=== PATIENT | female | born 1965 | race Caucasian/White ===

== ENCOUNTER 2017-03-20 10:26 | Day surgery (SDC) | payer OTHER ==
[~2017-03-20] VITALS: Ht 152.4 cm; Wt 66.1 kg
[~2017-03-20 10:26] MED LIST: IBUP-1542 PO; NO MEDS; TRAM50TA2 PO
[2017-03-20 12:50] VITALS: Ht 152.4 cm; Wt 66.1 kg
[2017-03-20 13:30] VITALS: BP 192/88; PULSE 66; RESP 18
[2017-03-20] MEDS ORDERED: FENTAnyl 50 MCG/ML VIAL ONE (14:26)
[2017-03-20] MEDS ORDERED: MIDAZOLAM 1 MG/ML 2 ML INJ ONE ×2 (14:26)
[2017-03-20 14:35] VITALS: BP 155/69; PULSE 64; RESP 14
--- NOTE | 2017-03-24 12:42 | GILP ---
Jana LUNDY PROCEDURE DATE OF PROCEDURE: 03/20/2017 SURGEON: Jasmyne Toscano MD. PROCEDURE PERFORMED: 1. Esophagogastroduodenoscopy and biopsy. 2. Colonoscopy and biopsy. PREOPERATIVE DIAGNOSES: 1. Abdominal pain. 2. Screening colonoscopy. POSTOPERATIVE DIAGNOSES: 1. Hiatal hernia. 2. Gastroesophageal reflux disease. 3. Gastritis with erosions. 4. Gastric mucosa biopsies were taken for Helicobacter pylori. 5. Colonoscopy all the way to cecum. 6. Biopsies of the cecal polyp was done. 7. Internal hemorrhoids. INDICATION: The patient is a 51-year-old female patient who had upper abdominal pain, not responding to therapy. The patient also needed a screening colonoscopy. The procedure and possible complications were well-explained to the patient, the patient understood and consented to the procedure. DESCRIPTION OF PROCEDURE: Under the influence of fentanyl and Versed the gastro scope was carefully introduced into the esophagus. Under the direct vision it was advanced to the stomach into the pylorus, into the duodenal bulb, and descending duodenum. Findings of the esophagus: The patient had hiatal hernia and gastroesophageal reflux disease. Stomach: The patient had gastritis and erosions. Gastric mucosal biopsies were taken for H pylori test. The duodenum was normal. The colonoscope was carefully introduced into the rectum, and under direct vision it was advanced all the way to the cecum. Findings: The patient had a polyp in the cecum, and biopsies were taken for histopathology. The patient was noted to have internal hemorrhoids. The patient tolerated the procedures very well. There was no complications from the procedures. At the end of the procedure she was awake with stable vital signs. She was discharged home to the care of her family. IMPRESSION: 1. Hiatal hernia. 2. Gastroesophageal reflux disease. 3. Gastritis with erosions. 4. Gastric mucosal biopsies were taken for Helicobacter pylori testing. 5. Colonoscopy all the way to the cecum. 6. The patient had a polyp in the cecum and biopsies were taken for histopathology. 7. Internal hemorrhoids. PLAN: 1. Omeprazole 40 mg orally every day morning. 2. Await histopathology report. 3. The timing for next colonoscopy will be decided after reviewing the pathology report of the cecal polyp. Dictated By: MD ERYN Lopez/[email or web address]/[email or web address] /Document#: [id number] Conf#:[id number] DID#: [id number] CC: Jasmyne Toscano MD;*[facility]*
== END 2017-03-20 18:05 | disposition home or self-care (01) ==
LOC: GIL 10:26
PROVIDERS: ATTEND Internal Medicine Gastroenterology
DX: Z12.11 Encounter for screening for malignant neoplasm of colon (principal); D12.0 Benign neoplasm of cecum; K21.9 Gastro-esophageal reflux disease without esophagitis; K64.8 Other hemorrhoids; K44.9 Diaphragmatic hernia without obstruction or gangrene
CPT/HCPCS: 43239; 45380; 87081; 88305; J2250; J3010; Z7610

== ENCOUNTER 2019-03-02 17:08 | Emergency (ER) | payer OTHER ==
[~2019-03-02] VITALS: Ht 162.6 cm; Wt 65.8 kg
[2019-03-02 17:16] VITALS: Ht 162.6 cm; Wt 65.8 kg
--- NOTE | 2019-03-02 18:18 | ERD ---
ER Documentation Chief Complaint Chief Complaint abdominal pain, diarrhea and fever x2 days HPI The patient is a 53-year-old female, presenting to the ER because of diffuse abdominal pain, subjective fever, diarrhea for 2 days, denies similar symptoms previously, denies chest pain, dyspnea, vomiting, dysuria. She does not smoke nor drink Past medical history: Hiatal hernia, GERD, hemorrhoids, hypertension Past surgical history: Meningioma, benign breast tumor, hysterectomy, EGD and colonoscopy recently that showed gastritis and internal hemorrhoids ROS All systems reviewed and are negative except as per history of present illness. Medications Home Meds Reported Medications [None] No Conflict Check 03/20/17 Allergies Allergies: Coded Allergies: penicillin G (Unverified Allergy, Intermediate, 03/02/19) PMhx/Soc History of Surgery: Yes (MENINGIOMA RESECTION, BREAST TUMOR , TOTAL HYSTERECTO MY) Anesthesia Reaction: No Hx Neurological Disorder: No Hx Respiratory Disorders: No Hx Cardiac Disorders: No Hx Psychiatric Problems: No Hx Miscellaneous Medical Probl: No Hx Alcohol Use: No Hx Substance Use: No Hx Tobacco Use: No Physical Exam Vitals Vital Signs Date Temp Pulse Resp B/P (MAP) Pulse Ox O2 O2 Flow FiO2 Time Delivery Rate 03/02/19 69 21 115/73 99 Room Air 20:45 (87) 03/02/19 99.2 76 18 142/71 97 17:16 (94) Physical Exam Const: No acute distress. Head: Atraumatic. Eyes: Normal Conjunctiva. ENT: Normal External Ears, Nose and Mouth. Neck: Full range of motion. No meningismus. Resp: Clear to auscultation bilaterally. Cardio: Regular rate and rhythm. Abd: Soft, non distended, normal bowel sounds,vague minimal abdominal discomfort, no rigidity/rebound/CVA tenderness Skin: No petechiae or rashes. Back: No midline or flank tenderness. Ext: No cyanosis, or edema. Neur: Awake and alert. No focal deficit Psych: Normal Mood and Affect. Result Diagram: 03/02/194 03/02/194 Results 24 hrs Laboratory Tests Test 03/02/19 18:44 White Blood Count 9.2 10^3/ul Red Blood Count 5.10 10^6/ul Hemoglobin 14.6 g/dl Hematocrit 42.8 % Mean Corpuscular Volume 83.9 fl Mean Corpuscular Hemoglobin 28.6 pg Mean Corpuscular Hemoglobin Concent 34.1 g/dl Red Cell Distribution Width 12.0 % Platelet Count 182 10^3/UL Mean Platelet Volume 12.0 fl Immature Granulocytes % 0.100 % Neutrophils % 72.8 % Lymphocytes % 17.4 % Monocytes % 8.5 % Eosinophils % 0.4 % Basophils % 0.8 % Nucleated Red Blood Cells % 0.0 /100WBC Immature Granulocytes # 0.010 10^3/ul Neutrophils # 6.7 10^3/ul Lymphocytes # 1.6 10^3/ul Monocytes # 0.8 10^3/ul Eosinophils # 0.0 10^3/ul Basophils # 0.1 10^3/ul Nucleated Red Blood Cells # 0.0 10^3/ul Bedside Urine pH (LAB) 5.0 Bedside Urine Protein (LAB) Negative Bedside Urine Glucose (UA) Negative Bedside Urine Ketones (LAB) 2+ Bedside Urine Blood 1+ Bedside Urine Nitrite (LAB) Negative Bedside Urine Leukocyte Esterase (L Negative Sodium Level 138 mmol/L Potassium Level 4.0 mmol/L Chloride Level 104 mmol/L Carbon Dioxide Level 21 mmol/L Anion Gap 13 Blood Urea Nitrogen 12 mg/dl Creatinine 0.59 mg/dl Est Glomerular Filtrat Rate mL/min > 60 mL/min Glucose Level 100 mg/dl Calcium Level 10.1 mg/dl Total Bilirubin 1.6 mg/dl Direct Bilirubin 0.00 mg/dl Indirect Bilirubin 1.6 mg/dl Aspartate Amino Transf (AST/SGOT) 45 IU/L Alanine Aminotransferase (ALT/SGPT) 44 IU/L Alkaline Phosphatase 75 IU/L Total Protein 7.7 g/dl Albumin 4.6 g/dl Globulin 3.10 g/dl Albumin/Globulin Ratio 1.48 Lipase 118 U/L Current Medications Medications Dose Sig/Aurelia Start Time Status Last (Trade) Ordered Route PRN Stop Time Admin Dose Reason Admin Sodium 1,000 ml @ Q1H ONCE 03/02/19 DC 03/02/19 Chloride 1,000 mls/hr IV 18:30 18:33 03/02/19 19:29 Ketorolac 30 mg ONCE STAT 03/02/19 DC 03/02/19 Tromethamine IV 18:54 19:03 (Toradol) 03/02/19 18:55 Loperamide 4 mg ONCE ONCE 03/02/19 DC 03/02/19 HCl PO 19:00 19:03 (Imodium Cap) 03/02/19 19:01 Procedures/[place] [address] Radiology Main Line: [phone] DIAGNOSTIC IMAGING REPORT Patient: REDDY PACHECO : 1965 Age: 53 Sex: F MR #: [id number] DOS: 03/02/192015 Ordering MD: JAYJAY SALAMANCA MD Location: E/R Room/Bed: PROCEDURE: US Abdomen. CLINICAL INDICATION: Abdominal Pain TECHNIQUE: Multiple real-time images were acquired of the patient's abdomen and retroperitoneum utilizing a high resolution transducer. COMPARISON: None FINDINGS: The liver is of normal size, contour and echogenicity with no mass or intrahepatic ductal dilatation. Portal and hepatic vein are patent on color flow Doppler imaging. The common bile duct measures 3.2 millimeter in transverse diameter. multiple gallstones are identified. Gallbladder wall is not thickened and no abnormal pericholecystic fluid collection is seen. No sonographic Rondon's sign was elicited during this exam. There is no ascites. The pancreas is not well visualized. The right kidney measures 10.3 cm in length. No hydronephrosis, calculus or masses present.. There is no evidence of abdominal aortic aneurysm or caval thrombosis. IMPRESSION: Cholelithiasis. No evidence of cholecystitis or biliary obstruction. .Carlos Strickland MD, MD Date Time Electronically viewed and signed by .Carlos Strickland MD, MD on 03/02/2019 21:25 .A/ CC: JAYJAY SALAMANCA MD [phone] MEDICAL MAKING DECISION: The patient is a 53-year-old female, presenting with acute symptomatic cholelithiasis, elevated total bilirubin that is concerning for acute choledocholithiasis. She was treated with 1 L normal saline for clin ical dehydration, Toradol 30 mg IV for pain, Imodium 4 mg p.o. for diarrhea with good response. She needs abdominal MRCP to rule out choledocholithiasis The differential diagnoses considered include but are not limited to cholelithiasis, cholecystitis, choledocholithiasis, cholangitis, pancreatitis, hepatitis, gastritis, peptic ulcer disease, gastric ulcer, appendicitis, cystitis, diverticulitis, partial small bowel obstruction. Departure Diagnosis: Primary Impression: Abdominal pain Condition: Stable Comments She was offered admission for further evaluation but she declined and wanted to leave AGAINST MEDICAL ADVICE The patient signed out AGAINST MEDICAL ADVICE. Risks, benefits, alternatives were explained to the patient. Risks include but not limited to and permanent disability Disclaimer: Inadvertent spelling and grammatical errors are likely due to EHR/dictation software use and do not reflect on the overall quality of patient care. Also, please note that the electronic time recorded on this note does not necessarily reflect the actual time of the patient encounter. JAYJAY SALAMANCA MD Mar 02, 2019 18:18
[2019-03-02] MEDS ORDERED: SOD CHLORIDE 0.9% 1,000 ML IV ONE (18:30)
[2019-03-02] MEDS ORDERED: KETOROLAC 30 MG INJ IV STA (18:54)
[2019-03-02] MEDS ORDERED: LOPERAMIDE 2 MG CAP PO ONE (19:00)
[2019-03-02 20:45] VITALS: BP 115/73; PULSE 69; RESP 21
== END 2019-03-02 22:30 | disposition left against medical advice (07) ==
LOC: E/R 17:08
DX: R10.84 Generalized abdominal pain (principal); I10 Essential (primary) hypertension
CPT/HCPCS: 36415; 76705; 80053; 81003; 83690; 85025; 96374; J1885; J7030; Z7502; Z7610